=== PATIENT | male | born 1970 | race Caucasian/White ===

== ENCOUNTER 2017-12-07 10:25 | Emergency (ER) | payer OTHER ==
[~2017-12-07] VITALS: Ht 185.4 cm; Wt 100.0 kg
[2017-12-07 10:45] VITALS: BP 138/71; PULSE 80; RESP 19; TEMP 98.3; O2SAT 97
[2017-12-07 10:57] VITALS: O2SAT 99
[2017-12-07] MEDS ORDERED: SODIUM CHLORIDE 0.9% FLUSH 10 ML FLUSH IVF PRN (11:00)
[2017-12-07 11:13] LABS: AUTOMATED NEUTROPHIL # 4.8 TH/MM3 (1.8-7.7); BASOPHIL # 0.1 TH/MM3 (0-0.2); BASOPHIL % 0.6 % (0.0-2.0); EOSINOPHIL # 0.2 TH/MM3 (0-0.4); HEMATOCRIT 43.7 % (39.0-51.0); HEMOGLOBIN 14.5 GM/DL (13.0-17.0); LYMPH % 47.8 % (9.0-44.0); LYMPHOCYTE # 4.9 TH/MM3 (1.0-4.8); MEAN CELL VOLUME 86.1 FL (80.0-100.0); MEAN CORPUSCULAR HEMOGLOBIN 28.6 PG (27.0-34.0); MEAN CORPUSCULAR HGB CONC 33.2 % (32.0-36.0); MEAN PLATELET VOLUME 7.6 FL (7.0-11.0); MONO % 2.5 % (0.0-8.0); MONOCYTE # 0.3 TH/MM3 (0-0.9); NEUT % 47.1 % (16.0-70.0); PLATELET COUNT 290 TH/MM3 (150-450); RED BLOOD COUNT 5.08 MIL/MM3 (4.50-5.90); RED CELL DISTRIBUTION WIDTH 13.2 % (11.6-17.2); WHITE BLOOD COUNT 10.3 TH/MM3 (4.0-11.0)
[2017-12-07] MEDS ORDERED: methylPREDNISolone SOD SUCC 125 MG/2 ML VIAL IV PUSH ONE (11:15)
[2017-12-07] MEDS ORDERED: diphenhydrAMINE HCL 50 MG/ML VIAL IV PUSH ONE (11:15)
[2017-12-07] MEDS ORDERED: SODIUM CHLOR 0.9% 1000 ML INJ 1,000 ML IV ONE ×2 (11:15→12:30)
--- NOTE | 2017-12-07 11:36 | PD ---
HPI Chief Complaint: Syncope/Near-Syncope Time Seen by Provider: 11:01 Travel History International Travel<30 days: No Contact w/Intl Traveler<30days: No Traveled to known affect area: No History of Present Illness HPI 47-year-old male with no significant medical history presents to the emergency department following a syncopal episode. [place] the [place] he walked through an ant pile. He was bitten several times on the bilateral lower extremities. Shortly following this event, he became lightheaded and syncopized. He did not strike his head or lose consciousness. Patient states now he feels weak and he has a headache, mild in severity, generalized. He denies any chest pain or tightness. He has no difficulty breathing. He denies any sensation of oral swelling or throat closing. He has been bitten by an ant in the past and he had a significant local reaction, but he has never had anything like this. He has no other symptoms to report at this time. He has not taken anything prior to arrival. [facility] Past Medical History Medical History: Denies Significant Hx Hepatitis: Yes (a?) Tetanus Vaccination: < 5 Years Past Surgical History Surgical History: No Previous Surgery Social History Alcohol Use: No Tobacco Use: No Substance Use: No Allergies-Medications (Allergen,Severity, Reaction): Coded Allergies: No Known Allergies (Unverified , 12/07/17) Reported Meds & Prescriptions Reported Meds & Active Scripts Active Medrol Dosepak (Methylprednisolone) 4 Mg Dspk 4 Mg PO DIRECTED Per Pharmacist direction Epipen 2-Fox Inj (Epinephrine) 0.3 Mg/0.3 Ml Pfpen 0.3 Mg SQ ONCE PRN Review of Systems Except as stated in HPI: all other systems reviewed are Neg Physical Exam Narrative GENERAL: Well-nourished male patient, sitting up in bed, awake and alert and in no acute distress. SKIN: Focused skin assessment warm/dry. Patient has multiple subcentimeter raised erythematous papules, consistent with insect bite surrounded by confluent blanchable erythema on the bilateral feet and distal lower extremities.. Mild swelling associated with these. No pustular vesicle formation. HEAD: Atraumatic. Normocephalic. EYES: Pupils equal and round. No scleral icterus. No injection or drainage. ENT: No nasal bleeding or discharge. Mucous membranes pink and moist. No oral swelling. NECK: Trachea midline. No JVD. No stridor. CARDIOVASCULAR: Mildly elevated rate and rhythm. No murmur appreciated. RESPIRATORY: No accessory muscle use. Clear to auscultation. Breath sounds equal bilaterally. GASTROINTESTINAL: Abdomen soft, non-tender, nondistended. Hepatic and splenic margins not palpable. MUSCULOSKELETAL: No obvious deformities. No clubbing. No cyanosis. NEUROLOGICAL: Awake and alert. No obvious cranial nerve deficits. Motor grossly within normal limits. Normal speech. PSYCHIATRIC: Appropriate mood and affect; insight and judgment normal. Data Data Last Documented VS Vital Signs Date Time Temp Pulse Resp B/P (MAP) Pulse Ox O2 Delivery O2 Flow Rate FiO2 12/07/17 12:54 94 137/67 (90) 97 135/70 (91) 12/07/17 10:57 99 Room Air 12/07/17 10:45 98.3 19 Orders Orders Electrocardiogram (12/07/17 10:53) Complete Blood Count With Diff (12/07/17 10:53) Comprehensive Metabolic Panel (12/07/17 10:53) Ckmb (Isoenzyme) Profile (12/07/17 10:53) Troponin I (12/07/17 10:53) Ecg Monitoring (12/07/17 10:53) Iv Access Insert/Monitor (12/07/17 10:53) Oximetry (12/07/17 10:53) Sodium Chloride 0.9% Flush (Ns Flush) (12/07/17 11:00) Methylprednisolone So Succ Inj (Solumedr (12/07/17 11:15) Diphenhydramine Inj (Benadryl Inj) (12/07/17 11:15) Sodium Chlor 0.9% 1000 Ml Inj (Ns 1000 M (12/07/17 11:15) CKMB (12/07/17 11:00) CKMB% (12/07/17 11:00) Sodium Chlor 0.9% 1000 Ml Inj (Ns 1000 M (12/07/17 12:30) Orthostatic Vital Signs (12/07/17 12:43) Ed Discharge Order (12/07/17 13:37) Labs Laboratory Tests Test 12/07/17 11:00 White Blood Count 10.3 TH/MM3 Red Blood Count 5.08 MIL/MM3 Hemoglobin 14.5 GM/DL Hematocrit 43.7 % Mean Corpuscular Volume 86.1 FL Mean Corpuscular Hemoglobin 28.6 PG Mean Corpuscular Hemoglobin Concent 33.2 % Red Cell Distribution Width 13.2 % Platelet Count 290 TH/MM3 Mean Platelet Volume 7.6 FL Neutrophils (%) (Auto) 47.1 % Lymphocytes (%) (Auto) 47.8 % Monocytes (%) (Auto) 2.5 % Eosinophils (%) (Auto) 2.0 % Basophils (%) (Auto) 0.6 % Neutrophils # (Auto) 4.8 TH/MM3 Lymphocytes # (Auto) 4.9 TH/MM3 Monocytes # (Auto) 0.3 TH/MM3 Eosinophils # (Auto) 0.2 TH/MM3 Basophils # (Auto) 0.1 TH/MM3 CBC Comment DIFF FINAL Differential Comment Blood Urea Nitrogen 13 MG/DL Creatinine 1.41 MG/DL Random Glucose 124 MG/DL Total Protein 7.2 GM/DL Albumin 3.5 GM/DL Calcium Level 8.1 MG/DL Alkaline Phosphatase 52 U/L Aspartate Amino Transf (AST/SGOT) 44 U/L Alanine Aminotransferase (ALT/SGPT) 28 U/L Total Bilirubin 1.1 MG/DL Sodium Level 141 MEQ/L Potassium Level 4.9 MEQ/L Chloride Level 110 MEQ/L Carbon Dioxide Level 23.4 MEQ/L Anion Gap 8 MEQ/L Estimat Glomerular Filtration Rate 54 ML/MIN Total Creatine Kinase 332 U/L Creatine Kinase MB 2.1 NG/ML Creatine Kinase MB % 0.6 % Troponin I LESS THAN 0.02 NG/ML MDM Medical Decision Making Medical Screen Exam Complete: Yes Emergency Medical Condition: Yes Medical Record Reviewed: Yes Differential Diagnosis Allergic reaction versus anaphylaxis versus vasovagal response versus syncope versus near syncope Narrative Course 47-year-old male presents emergency department for evaluation following a syncopal episode that followed by being bitten by several ants on his bilateral lower extremities. Patient appears well at this time. He does have obvious bites to the bilateral distal lower extremities and feet with associated local reaction. He is mildly tachycardic. EKG is reviewed by my attending physician , normal sinus rhythm with no ST elevation or depression. No other ectopy. Patient is given IV Solu-Medrol and Benadryl here in the emergency department. 1335 patient swelling of his feet has decreased. He appears well. He states he feels much better. I discussed the patient my attending physician. He will be discharged at this time. Diagnosis Primary Impression: Allergy to ant bite Additional Impression: Syncope Qualified Codes: R55 - Syncope and collapse Ruled Out: Fire ant bite Referrals: Primary Care Physician Patient Instructions: General Allergic Reaction (ED), General Instructions, Insect Bite or Sting (ED) Additional Instructions: Follow-up with a primary care provider Continue Benadryl 25 mg by mouth every 6 hours over the next 24 hours then as needed for itching Elevate lower extremities to reduce pain and swelling Cool compresses to the affected area may help to alleviate pain Return immediately with any acute worsening symptoms Recheck renal function in 1 month. Return immediately with acute worsening symptoms Med/Other Pt SpecificInfo: Prescription(s) given Scripts Methylprednisolone Dosepak (Medrol Dosepak) 4 Mg Dspk 4 MG PO DIRECTED, #1 DSPK 0 Refills Per Pharmacist direction Prov: Sarah Love 12/07/17 Epinephrine Inj (Epipen 2-Fox Inj) 0.3 Mg/0.3 Ml Pfpen 0.3 MG SQ ONCE Y for ALLERGIC REACTION, #1 PACK 0 Refills Prov: Sarah Love 12/07/17 Disposition: 01 DISCHARGE HOME Condition: Stable Sarah Love Dec 07, 2017 11:36
[2017-12-07 11:44] LABS: ALBUMIN 3.5 GM/DL (3.4-5.0); ALKALINE PHOSPHATASE 52 U/L (45-117); ALT (GPT) 28 U/L (12-78); AST (GOT) 44 U/L (15-37); BICARBONATE 23.4 MEQ/L (21.0-32.0); BLOOD UREA NITROGEN 13 MG/DL (7-18); CALCIUM 8.1 MG/DL (8.5-10.1); CHLORIDE 110 MEQ/L (98-107); CREATININE 1.41 MG/DL (0.60-1.30); GLOMERULAR FILTRATION RATE 54 ML/MIN (>89); GLUCOSE,RANDOM 124 MG/DL (74-106); SODIUM (NA) 141 MEQ/L (136-145); TOTAL BILIRUBIN ADULT 1.1 MG/DL (0.2-1.0); TOTAL PROTEIN 7.2 GM/DL (6.4-8.2); TROPONIN I LESS THAN 0.02 NG/ML (0.02-0.05)
[2017-12-07 12:54] VITALS: BP_SYST 135; BP_SYST 137; BP_DIAS 67; BP_DIAS 70
[2017-12-07] MEDS ORDERED: EPIP0.3I SQ (13:40)
[2017-12-07] MEDS ORDERED: MEDR4PAK PO (13:40)
--- NOTE | 2017-12-07 13:44 | EKG ---
Date Performed: 12/07/2017 Time Performed: 10:53:13 PTAGE: 47 years EKG: Sinus rhythm NORMAL ECG NO PREVIOUS TRACING DOCTOR: Nilo Christina Interpretating Date/Time 12/07/2017 13:43:21
== END 2017-12-07 14:00 | disposition home or self-care (01) ==
LOC: NEPC 10:25
DX: T63.481A Toxic effect of venom of other arthropod, accidental (unintentional), initial encounter (principal); R55 Syncope and collapse; R51 Headache; R53.1 Weakness; R00.0 Tachycardia, unspecified; S80.862A Insect bite (nonvenomous), left lower leg, initial encounter; S80.861A Insect bite (nonvenomous), right lower leg, initial encounter; Y92.832 Beach as the place of occurrence of the external cause
CPT/HCPCS: 80053; 82550; 82552; 84484; 85025; 93005; 96361; 96374; 96375; 99284; J1200; J2930; J7030